=== PATIENT | female | born 1960 | race African-American/Black ===

== ENCOUNTER 2017-09-03 23:38 | Emergency (ER) | payer MEDICAID, OTHER ==
[~2017-09-03] VITALS: Ht 165.1 cm; Wt 99.0 kg
[~2017-09-03 23:38] MED LIST: ATEN-42 PO; TRIA1TAB5 PO
[2017-09-04] MEDS ORDERED: IBUPROFEN 800MG TABLET PO ONE (04:15)
[2017-09-04 04:35] VITALS: BP 140/69
== END 2017-09-04 04:50 | disposition home or self-care (01) ==
LOC: ER 09-04 00:06
DX: M54.2 Cervicalgia (principal); M62.830 Muscle spasm of back; V43.52XA Car driver injured in collision with other type car in traffic accident, initial encounter; Y93.89 Activity, other specified; Y92.488 Other paved roadways as the place of occurrence of the external cause
CPT/HCPCS: 99283